=== PATIENT | male | born 1965 | race Caucasian/White ===

== ENCOUNTER → 2021-03-28 | Day surgery (SDC) | payer OTHER ==
[~2021-03-28] VITALS: Ht 175.3 cm; Wt 88.5 kg
[~2021-03-28] MED LIST: ACETAMINOPHEN500 M1 PO; DOK100 MG PO; FOLIC ACID1 MG PO; MOTRIN600 MG PO; OMEPRAZOLE40 MG PO; PROAIR HFA8.5 GM INH; VITAMIN D325 MC1 PO
== END | disposition home or self-care (01) ==
LOC: FAS 06:38
DX: Z45.2 Encounter for adjustment and management of vascular access device (principal); K21.9 Gastro-esophageal reflux disease without esophagitis; Z85.048 Personal history of other malignant neoplasm of rectum, rectosigmoid junction, and anus; Z79.899 Other long term (current) drug therapy; Z88.8 Allergy status to other drugs, medicaments and biological substances; Z90.49 Acquired absence of other specified parts of digestive tract
CPT/HCPCS: J1100; J1885; J2250; J2405; J2704; J3010; J7120